=== PATIENT | male | born 1980 | race Caucasian/White ===

== ENCOUNTER 2019-04-13 18:09 | Observation (INO) | payer BC ==
--- OUTSIDE RECORDS SUMMARY | 2019-04-13 18:42 | XMS REPORT | Continuity of Care Document ---
:1980 External Reference #:[id number] Author Name Honorio Taveras NP (transmitted by agent of provider Trish Sorensen) Address [address], [place] [address] Care Team Providers Name Role Phone Misha Jack III, MD - Internal Care Team Information Associate Software Developer [phone] Medicine Problems Active Problems Provider Date Type 2 diabetes mellitus Misha Jack M.D. Onset: 08/22/2013 Essential hypertension Misha Jack M.D. Onset: 08/22/2013 Social History Type Date Description Comments Sex Unknown ETOH Use Denies alcohol use Tobacco Use Start: Unknown End: Patient is a former quit 3-4 months Unknown smoker ago. Recreational Drug Use Never Used Drugs Smoking Status Reviewed: 02/19/19 Patient is a former quit 3-4 months smoker ago. Exercise Type/Frequency Exercises rarely Allergies, Adverse Reactions, Alerts Active Allergies Reaction Severity Comments Date Ibuprofen Rash Moderate 08/22/2013 Penicillins unsure (child) Moderate 08/22/2013 Medications Active Medications SIG Qnty Indications Ordering Date Provider Glipizide XL 1 by mouth every 30tabs Honorio Taveras NP 02/19/2019 5mg day (in addition Tablets ER 24HR to 10mg tab) Trulicity Inject One Pen 2units E11.9 Honorio Taveras NP 08/17/2018 1.5mg/0.5ML Under The Skin Solution Pen-Inject Once Weekly Metformin HCL Take One Tablet 60tabs Honorio Taveras NP 01/28/2018 1000mg By Mouth Twice A Tablets Day as Directed Gemfibrozil Take One Tablet 60tabs Honorio Taveras NP 01/18/2018 600mg By Mouth Twice A Tablets Day Omeprazole Take One Capsule 30caps Honorio Taveras NP 01/18/2018 20mg By Mouth Once Capsules DR Daily Blood Glucose check blood sugar 1units E11.9 Honorio Taveras NP 01/18/2018 Monitoring System 2-3 times daily W/Device Kit Blood Glucose Test check blood 270units E11.9 Honorio Taveras NP 01/18/2018 glucose 2-3 times Strips daily Lancets use two to three 270units E11.9 Honorio Taveras NP 01/18/2018 Misc times daily and as needed Lisinopril Take One Tablet 30tabs Honorio Taveras NP 10mg By Mouth Once Tablets Daily Immunizations CPT Code Status Date Vaccine Reaction Lot # [id number] Given 02/19/2019 Influenza Virus Vaccine, No immediate reaction [id number] Quadrivalent ([id number]), Derived From Cell [id number] Given 05/17/2018 Pneumonia Vaccine No immediate [id number] reaction..[id number] Given 01/18/2018 Influenza Virus Vaccine, [id number] Quadrivalent, Split, Preservative Free Vital Signs Date Vital Result Comment 02/19/2019 9:15am Height 70.5 inches 5'10.50" Weight 324.00 lb Heart Rate 100 /min BP Systolic 135 mmHg BP Diastolic 81 mmHg Body Temperature 97.8 F O2 % BldC Oximetry 96 % BMI (Body Mass Index) 45.8 kg/m2 12/27/2018 8:27am Height 70.5 inches 5'10.50" Weight 324.38 lb Heart Rate 108 /min BP Systolic 133 mmHg BP Diastolic 80 mmHg Body Temperature 97.8 F O2 % BldC Oximetry 97 % BMI (Body Mass Index) 45.9 kg/m2 Results Test Acquired Date Facility Test Result H/L Range Note Laboratory test 02/19/2019 [employer] [facility] Hemoglobin A1c 8.1% High 5-7 finding Laboratory test 01/24/2019 [employer] [facility] [facility] [facility] Hemoglobin A1c <pending> 5-7 finding Laboratory test 11/19/2018 [employer] [facility] Hemoglobin A1c 8.1% High 5-7 finding Procedures Date Code Description Status 06/20/2018 161852606 Diabetic Retinal Eye Exam Completed Medical Devices Description No Information Available Encounters Type Date Location Provider Dx Diagnosis Office Visit 12/27/2018 [facility] Honorio Taveras NP E66.9 Obesity, unspecified 8:40a Medicine - [facility] Z68.42 Body mass index (BMI) 45.0-49.9, adult E11.65 Type 2 diabetes mellitus with hyperglycemia I10 Essential (primary) hypertension G47.33 Obstructive sleep apnea (adult) (pediatric) K21.9 Gastro-esophageal reflux disease without esophagitis Office Visit 11/19/2018 9:00a [facility] Internal Honorio Taveras, 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 E11.65 Type 2 diabetes mellitus with hyperglycemia I10 Essential (primary) hypertension Assessments Date Code Description Provider 02/19/2019 E11.65 Type 2 diabetes mellitus with hyperglycemia Honorio Taveras NP 02/19/2019 I10 Essential (primary) hypertension Honorio Taveras NP 02/19/2019 Z23 Encounter for immunization Honorio Taveras NP 02/19/2019 K21.9 Gastro-esophageal reflux disease without esophagitis Honorio Taveras NP 01/24/2019 E11.65 Type 2 diabetes mellitus with hyperglycemia Honorio Taveras NP 12/27/2018 E66.9 Obesity, unspecified Honorio Taveras NP 12/27/2018 Z68.42 Body mass index (BMI) 45.0-49.9, adult Honorio Taveras NP 12/27/2018 E11.65 Type 2 diabetes mellitus with hyperglycemia Honorio Taveras NP 12/27/2018 I10 Essential (primary) hypertension Honorio Taveras NP 12/27/2018 G47.33 Obstructive sleep apnea (adult) (pediatric) Honorio Taveras NP 12/27/2018 K21.9 Gastro-esophageal reflux disease without esophagitis Honorio Taveras NP 11/19/2018 Z79.84 alf (current) use of oral hypoglycemic drugs Honorio Taveras NP 11/19/2018 E11.65 Type 2 diabetes mellitus with hyperglycemia Honorio Taveras NP 11/19/2018 I10 Essential (primary) hypertension Honorio Taveras NP Plan of Treatment Future Appointment(s):05/20/2019 10:20 am - [facility] Honorio Taveras NPE11.65 Type 2 diabetes mellitus with hyperglycemiaComments:Your A1c remains 8.1% which is too high.It is important to try to exercise 5 days a week and to decrease carbohydrate consumption.Increase the Glipizide to 15mg daily.Follow up:3 months, 20 minRecommendations:See your car cleaning supervisor every year. It is OK to go every 2 years if he finds no retinal damage from diabetes. Ask your car cleaning supervisor to communicate his findings to us. See a assorter every 6 months if you have numbness in your feet or a history of foot ulcers.I10 Essential (primary) hypertensionComments:HYPERTENSION:Well controlled on current regimen. Continue present management.Z23 Encounter for sjfwxmlpxgixU90.9 Gastro-esophageal reflux disease without esophagitis Goals 02/19/2019 - Honorio Taveras, NPE11.65 Type 2 diabetes mellitus with hyperglycemiaGoal Hemoglobin A1c is less than 7.0%. Goal Blood pressure is less than 130/85. Functional Status Description No Information Available Mental Status Description No Information Available Referrals Refer to Dr Reason for Referral Status Appt Date [facility] Closed [address] [place] [address] [phone]
--- NOTE | 2019-04-13 18:46 | ED ---
Palpitations / Dysrhythmia - HPI Summary HPI Summary: This patient is a 38 y/o male [facility]. Patient reports he first had severe chills today and started shivering. He notes he then felt palpitations, characterized as fast heart beat, and saw on apple watch his heart rate was elevated. Patient states he became dizzy and began to have SOB this afternoon. Patient reports subjective fever. He notes he has some burning with urination and a little bit of diarrhea that began this morning, and denies eating anything unusual today. Denies cough, runny nose, sore throat, vomiting, abd pain, chest pain. PMHx: kidney stone in 2013. Patient is a former smoker, he quit 5-6 years ago and has been vaping since then. He states he vapes the lowest amount of nicotine he can get. He admits to occasional alcohol use. Denies drug use. Home Medications Medication Instructions Recorded Confirmed Type NK [No Home Medications Reported] 05/01/13 05/01/13 History - History of Current Complaint Chief Complaint: EDDysrhythmPalp Time Seen by Provider: 04/13/19 18:36 Hx Obtained From: Patient Onset/Duration: Lasting Hours, Still Present Timing: Constant Severity Currently: Moderate Character: Fast Aggravating: Nothing Alleviating: Nothing Associated Signs & Symptoms: Dizzy, Shortness of Breath - Allergy/Home Medications Allergies/Adverse Reactions: Allergies Allergy/AdvReac Type Severity Reaction Status Date / Time ibuprofen Allergy Rash Verified 04/13/19 18:14 Penicillins Allergy Unknown Verified 04/13/19 18:14 Reaction Details Home Medications: Home Medications Dulaglutide (NF) [Trulicity (NF)] 1.5 mg IM WEEKLY 04/14/19 [History Confirmed 04/14/19] Metformin HCl 1,000 mg PO BID 04/14/19 [History Confirmed 04/14/19] Omeprazole 20 mg PO DAILY 04/14/19 [History Confirmed 04/14/19] gemfibroziL [Gemfibrozil] 600 mg PO BID 04/14/19 [History Confirmed 04/14/19] glipiZIDE [Glipizide ER] 15 mg PO DAILY 04/14/19 [History Confirmed 04/14/19] lisinopriL [Lisinopril] 10 mg PO DAILY 04/14/19 [History Confirmed 04/14/19] PMH/Surg Hx/FS Hx/Imm Hx Endocrine/Hematology History: Reports: Hx Diabetes - Borderline Denies: Hx Thyroid Disease Cardiovascular History: Reports: Hx Hypertension Respiratory History: Reports: Hx Sleep Apnea - not sure Denies: Hx Asthma, Hx Chronic Obstructive Pulmonary Disease (COPD) GI History: Denies: Hx Ulcer History: Reports: Hx Kidney Stones Musculoskeletal History: Reports: Hx Back Problems, Hx Gout Sensory History: Reports: Hx Contacts or Glasses Opthamlomology History: Reports: Hx Contacts or Glasses Neurological History: Reports: Hx Migraine - Surgical History Surgical History: Yes Surgery Procedure, Year, and Place: TONSILS Infectious Disease History: No Infectious Disease History: Denies: Hx Hepatitis, Hx Human Immunodeficiency Virus (HIV), Traveled Outside the [place] in Last 30 Days - Family History Known Family History: Positive: Cardiac Disease - Father with [place] Family History: Father with bladder [place]. - Social History Alcohol Use: Occasionally Substance Use Type: Reports: None Smoking Status (MU): Former Smoker Type: eCigarettes Amount Used/How Often: quit ~2014 and since then has been vaping Review of Systems Positive: Fever - subjective, Chills Negative: Sore Throat, Nasal Discharge Positive: Palpitations. Negative: Chest Pain Positive: Shortness Of Breath. Negative: Cough Positive: Diarrhea. Negative: Abdominal Pain, Vomiting Positive: dysuria Neurological/Mental Status: Other - POSITIVE: dizziness All Other Systems Reviewed And Are Negative: Yes Physical Exam - Summary Physical Exam Summary: VITAL SIGNS: Reviewed. GENERAL: Patient is a well-developed and obese male who is lying comfortable in the stretcher in no acute distress. HEAD AND FACE: No signs of trauma. No ecchymosis, hematomas or skull depressions. No sinus tenderness. EYES: PERRLA, EOMI x 2, No injected conjunctiva, no nystagmus. EARS: Hearing grossly intact. Ear canals and tympanic membranes are within normal limits. MOUTH: Oropharynx within normal limits. NECK: Supple, trachea is midline, no adenopathy, no JVD, no carotid bruit, no c- spine tenderness, neck with full ROM. CHEST: Symmetric, no tenderness at palpation LUNGS: Clear to auscultation bilaterally. No wheezing or crackles. CVS: Tachycardic rate and rhythm, S1 and S2 present, no murmurs or gallops appreciated. ABDOMEN: Soft, non-tender. No signs of distention. No rebound no guarding, and no masses palpated. Bowel sounds are normal. EXTREMITIES: FROM in all major joints, no edema, no cyanosis or clubbing. NEURO: Alert and oriented x 3. No acute neurological deficits. Speech is normal and follows commands. SKIN: Dry and warm Triage Information Reviewed: Yes Vital Signs On Initial Exam: Initial Vitals Temp Pulse Resp BP Pulse Ox 97.9 F 149 16 139/90 96 04/13/19 18:11 04/13/19 18:11 04/13/19 18:11 04/13/19 18:11 04/13/19 18:11 Vital Signs Reviewed: Yes Procedures - Sedation Patient Received Moderate/Deep Sedation with Procedure: No Diagnostics - Vital Signs Vital Signs Temp Pulse Resp BP Pulse Ox 04/13/19 18:11 97.9 F 149 16 139/90 96 - Laboratory Result Diagrams: 04/14/19 06:35 04/14/19 06:34 Lab Statement: Any lab studies that have been ordered have been reviewed, and results considered in the medical decision making process. - Radiology chest XR Radiology Interpretation Completed By: ED Physician Summary of Radiographic Findings: Negative chest x-ray. - CT CTA Chest CT Interpretation Completed By: Radiologist Summary of CT Findings: IMPRESSION: 1. No evidence of acute pulmonary embolus. 2. No significant airspace consolidation. 3. Fatty liver. Dr. Urbina has reviewed this report. - EKG 18:19 Cardiac Rate: Tachycardia - at 141 bpm EKG Rhythm: Sinus Tachycardia Summary of EKG Findings: EKG at 1819 shows sinus tachycardia at a rate of [address] elevations. This EKG was interpreted and reviewed by ED physicians. Course/Dx - Course Assessment/Plan: This patient is a 38 y/o male presenting [facility] c/o palpitations today. Patient reports he first had severe chills today and started shivering. He notes he then felt palpitations, characterized as fast heart beat, and saw on apple watch his heart rate was elevated. Patient states he became dizzy and began to have SOB this afternoon. Patient reports subjective fever. He notes he has some burning with urination and a little bit of diarrhea that began this morning, and denies eating anything unusual today. Denies cough, runny nose, sore throat, vomiting, chest pain. PMHx: kidney stone in 2014. Patient is a former smoker, he quit 5-6 years ago and has been vaping since then. He states he vapes the lowest amount of nicotine he can get. He admits to occasional alcohol use. Denies drug use. Blood work without a significant abnormality except for white blood cell count of 13.2, absolute neutrophils of 12, D-dimer is 436, chloride 99, carbon dioxide is 21, anion gap is 13, glucose is 205, lactic acid is 2.8, magnesium is 1.3 and the CRP is 36.45. Urinalysis is negative for UTI. Influenza A and B is negative. Chest x -ray shows no acute cardiothoracic pathology. Initially the patient was given magnesium for the hypomagnesemia, IV fluids. The patient reports increasing shortness of breath and tachycardia, therefore I decided to perform a CTA to rule out PE. CTA result: No PE. The patient became febrile and slightly hypotensive therefore the patient was started on the sepsis protocol. The patient was given fluids 30 ccs per KG of the spectrum antibiotic. The patient is allergic to penicillin therefore he was given Levaquin. Patient seems to be getting septic and the source is not known at this point. Patient doesnt have any recent history of clotting. He hasnt been in contact with sick contacts. The only complain is that this morning he developed some slight diarrhea but not in the afternoon. He denies any abdominal pain. At this point I discussed my physical exam and findings with Dr. Aviles from the hospitalist services who will be admitting the patient to her services for further workup and management. CTA chest IMPRESSION: 1. No evidence of acute pulmonary embolus. 2. No significant airspace consolidation. 3. Fatty liver. Dr. Urbina has reviewed this report. - Diagnoses Provider Diagnoses: Sepsis, Tachycardia - Physician Notifications Discussed Care Of Patient With: Opal Aviles - hospitalist Time Discussed With Above Provider: 20:57 Instructed by Provider To: Admit As Inpatient - Critical Care Time Critical Care Time: 30-74 min - 45 minutes Discharge ED - Sign-Out/Discharge Documenting (check all that apply): Patient Departure - Admit to [facility] - Discharge Plan Condition: Stable Disposition: ADMITTED TO [facility] - Billing Disposition and Condition Condition: STABLE Disposition: Admitted to [facility] - Attestation Statements Document Initiated by Avisibkevin: Yes Documenting Scribe: Gwen Amato Provider For Whom Scribkevin is Documenting (Include Credential): Misha Urbina MD Scribe Attestation: I, Gwen Amato, scribed for Misha Urbina MD on 04/14/19 at 1058. Scribe Documentation Reviewed: Yes Provider Attestation: The documentation as recorded by the Gwen candelaria accurately reflects the service I personally performed and the decisions made by me, Misha Urbina MD Status of Scribe Document: Viewed
[2019-04-13 18:58] LABS: ABS Lymphocytes 0.5 10^3/ul (1.0-4.8); ABS Monocytes 0.7 10^3/ul (0-0.8); Eosinophil % 0.1 %; Hematocrit 45 % (42-52); Hemoglobin 15.6 g/dL (14.0-18.0); Lymphocyte % 3.6 %; Mean Corpuscular HGB Conc 35 g/dL (31-36); Mean Corpuscular Hemoglobin 28 pg (27-31); Mean Corpuscular Volume 80 fL (80-94); Mean Platelet Volume 8.2 fL (7.4-10.4); Platelet Count 227 10^3/uL (150-450); Red Blood Count 5.62 10^6 /uL (4.18-5.48); Red Cell Distribution Width 13 % (10-15); White Blood Count 13.2 10^3/uL (3.5-10.8)
[2019-04-13] MEDS: NS 0.9% 1000 ML** 1,000 ML IV ONE ×2 (19:01→22:02)
[2019-04-13 19:13] LABS: Activated Partial Thrombo Time 39.6 seconds (26.0-38.0)
[2019-04-13 19:16] LABS: Albumin 4.7 g/dL (3.2-5.2); Albumin/Globulin Ratio 1.6 (1-3); BUN/Creatinine Ratio 19.2 (8-20); C Reactive Protein 36.45 mg/L (<8.01); Calcium 9.8 mg/dL (8.6-10.3); EGFR African American 135.5 (>60); Magnesium 1.3 mg/dL (1.9-2.7); Potassium 3.9 mmol/L (3.5-5.0); Total Bilirubin 0.7 mg/dL (0.2-1.0); Total Protein 7.7 g/dL (6.4-8.9)
[2019-04-13] MEDS ORDERED: Magnesium Sulfate 1 GM IV* 1 GM/100 ML BAG IV ONE (19:22)
[2019-04-13 19:29] LABS: Influenza A Molecular Negative (Negative); Influenza B Molecular Negative (Negative)
[2019-04-13 19:48] LABS: TSH (Thyroid Stimulating Horm) 0.65 mcIU/mL (0.34-5.60)
[2019-04-13 20:05] LABS: Erythrocyte Sed Rate 9 mm/Hr (0-14)
[2019-04-13 20:14] LABS: Urine Appearance Cloudy; Urine Bilirubin Negative (Negative); Urine Blood Negative (Negative); Urine Color Yellow; Urine Glucose Negative (Negative); Urine Ketones 1+ (Negative); Urine Nitrite Negative (Negative); Urine Protein Negative (Negative); Urine Specific Gravity 1.028 (1.010-1.030); Urine Urobilinogen Negative (Negative)
[2019-04-13] MEDS ORDERED: Iodixanol* (CONTRAST) 320 MG/ML 100 ML SDV IV ONE (20:21)
[2019-04-13] MEDS ORDERED: NS 0.9% 1000 ML** 1,000 ML IV.FLUID IV ONE (20:37)
[2019-04-13] MEDS ORDERED: cefTRIAXone(*) 1 GM in NS 0.9% 50 ML* 50 ML IVPB ONE (20:37)
[2019-04-13] MEDS ORDERED: Acetaminophen TAB* 325 MG PO ONE (20:38)
[2019-04-13] MEDS ORDERED: Levofloxacin 750 MG IVPREMIX(* 750 MG/150 ML BAG IVPB ONE (20:39)
[2019-04-13] MEDS ORDERED: NS 0.9% 1000 ML** 1,000 ML IV SCH (22:30)
--- NOTE | 2019-04-13 23:37 | ADMNOTE ---
Subjective Interval History: 38 yo male with history of diabetes and HTN who presented to the ED today with complaints of palpitations and dizziness. He also has been experiencing subjective fevers and chills earlier today. When he became short of breath, he came to the ED. In the ED, he was tachycardic in the 140s-150s with hypotension. He has mild leukocytosis, mild lactic acidosis. D-dimer was elevated, he got a CTA which showed no PEs, no PNA reported either. UA is normal. Patient is a former smoker. He admits to occasional alcohol use. Denies drug use. ROS: loose stool but no abdominal pain, calf pain. Family History: Unchanged from Admission Social History: Unchanged from Admission Past Medical History: Unchanged from Admission Review of Systems - Measurements Intake and Output: Intake and Output Last 24 Hours 04/11/19 04/12/19 04/13/19 04/14/19 06:59 06:59 06:59 06:59 Intake Total 1999 Balance 1999 Weight 327 lb Intake: IV Fluids 1999 - Review of Systems Constitutional Symptoms: Positive: Fatigue, Fever Negative: Weight Gain, Weight Loss, Weakness, Night Sweats, Unexplained Falls , Other Dermatology: Negative: Normal, Rash, Skin Lesions, Cancer, Skin Lumps, Other HEENT: Negative: Normal, Change in Hearing, Vertigo, Dental Problems, Tinnitus, Sinus Problem, Other Eyes: Negative: Normal, Change in Vision, Double Vision, Eye Pain, Glaucoma, Cataract, Contacts or Glasses, Other Pulmonary: Positive: Shortness of Breath Negative: Normal, Cough, Sputum, Hemoptysis, Wheezing, Respiratory Distress, COPD, Asthma, Exercise Intolerance, Home Oxygen, Other Cardiology: Positive: Shortness of Breath, Palpitations, Orthopnoea Negative: Normal, Chest Pain, Swelling of Ankles, Peripheral Vascular Dis, Edema, Faintness, Syncope, Claudication, Proximal NocturnalDyspnea, Other Gastroenterology: Positive: Diarrhea Negative: Normal, Abdominal Pain, Nausea, Vomiting, Anorexia, Indigestion, Difficulty Swallowing, Heartburn, Constipation, Blood in Stools, Change in Bowel Habits, Haematemesis, Melena, Other Musculoskeletal: Negative: Joint Pain, Joint Stiffness, Arthritis, Osteoporosis, Low Back Pain , Sciatica, Joint Deformities, Kyphoscoliosis, Other Endocrinology: Negative: Normal, Thyroid Problems, Adrenal Problems, Gonadal Problems, Family Hx Endocrine Disorders, Obesity, Diabetes Mellitus, Hyperglycemia, Hx Hypoglycemia, Diabetic Foot Ulcers, Calluses, Hirsutism, Menstrual Abnormalities , Polydipsia, Polyuria, Gonadal Problems, Gynecomastia, Pituitary disease, Other Hematologic/Lymphatic: Negative: Anemia, Easy Bruising, Hx Leukemia, Hx Lymphoma, Use of Anticoagulant, Use of Antiplatelet Drugs, Other Neurology: Negative: Normal, Headache, Migraines, Change in Vision, Diplopia, Dizziness , Change in Balancing, Change in Coordination, Change in Memory, Change in Speech, Change in Sphincter Function, Change in Walking, Numbness\Paresthesiae, Unexplained Weakness, Hx of Stroke\TIA, Hx of Seizures, Other Psychiatry: Negative: Normal, Depression, Anxiety, Depressed Mood, Anhedonia, Sexual Dysfunction, Weight Change, Guilt Feelings, Tearfulness, Unusual Fatigue, Unusual Anxiety, Suicidal Ideation, Hypomania, Eating Disorders, Other Objective Active Medications: Sodium Chloride (Ns 0.9% 1000 Ml) 1,000 mls @ 125 mls/hr IV PER RATE [facility] Ceftriaxone Sodium 1 gm/ (Sodium Chloride) 50 mls @ 100 mls/hr IVPB Q24H [facility] Vital Signs - 8 hr 04/13/19 04/13/19 04/13/19 18:11 18:29 18:31 Temperature 97.9 F Pulse Rate 149 135 141 Respiratory 16 11 17 Rate Blood Pressure 139/90 129/97 (mmHg) O2 Sat by Pulse 96 96 96 Oximetry 04/13/19 04/13/19 04/13/19 19:00 20:34 22:07 Temperature 100.9 F 98.8 F Pulse Rate 134 132 129 Respiratory 13 22 17 Rate Blood Pressure 88/61 108/66 (mmHg) O2 Sat by Pulse 97 96 Oximetry Oxygen Devices in Use Now: None Appearance: NID Eyes: No Scleral Icterus, PERRLA Ears/Nose/Mouth/Throat: NL Teeth, Lips, Gums, Mucous Membranes Moist Neck: NL Appearance and Movements; NL JVP, Trachea Midline Respiratory: Symmetrical Chest Expansion and Respiratory Effort, Clear to Auscultation, Clear to Percussion Cardiovascular: - - tachycarida no murmurs Abdominal: NL Sounds; No Tenderness; No Distention Lymphatic: No Cervical Adenopathy Extremities: No Edema, No Clubbing, Cyanosis Skin: No Rash or Ulcers, No Nodules or Sclerosis Neurological: Alert and Oriented x 3, NL Muscle Strength and Tone Result Diagrams: 04/13/19 18:48 04/13/19 18:48 Assess/Plan/Problems-Billing Assessment: - Patient Problems (1) Sinus tachycardia Current Visit: Yes Status: Acute Code(s): R00.0 - TACHYCARDIA, UNSPECIFIED SNOMED Code(s): 14294383 Comment: presented with palpitation and hypotension. His HR initially was 140s-150s and he was hypotensive, his pressure responded to boluses of fluids. He still remains tachycardic in the 120s. EKG shows sinus tachycardia. Suspicous of an infectious source, but so far CT of lungs and ua are normal. Blood cx drawn He complained to calf pain, will get US of legs B/L will cover him empiracally with ceftriaxone until we know more (2) Hypertension Current Visit: Yes Status: Acute Code(s): I10 - ESSENTIAL (PRIMARY) HYPERTENSION SNOMED Code(s): 71574366 Comment: hold home meds (3) Diabetes mellitus Current Visit: Yes Status: Acute Code(s): E11.9 - TYPE 2 DIABETES MELLITUS WITHOUT COMPLICATIONS SNOMED Code(s): 11033617 Comment: diabetic diet meal coverage FS POC ACHS (4) DVT prophylaxis Current Visit: Yes Status: Acute Code(s): Z29.9 - ENCOUNTER FOR PROPHYLACTIC MEASURES, UNSPECIFIED SNOMED Code(s): 503752953 Comment: heparin (5) Full code status Current Visit: Yes Status: Acute Code(s): Z78.9 - OTHER SPECIFIED HEALTH STATUS SNOMED Code(s): 187824304
[2019-04-13] MEDS ORDERED: Dextrose 50% Syringe 50 ML* 25 GM/50 ML SYRINGE IV PUSH PRN (23:47)
[2019-04-14] MEDS ORDERED: cefTRIAXone(*) 1 GM in NS 0.9% 50 ML* 50 ML IVPB SCH ×2
[2019-04-14] MEDS: Insulin LISPRO* 1 UNITS UNIT SUBCUT SCH ×3 (01:09→12:22)
[2019-04-14 07:22] LABS: ABS Lymphocytes 0.8 10^3/ul (1.0-4.8); ABS Neutrophils 7.4 10^3/ul (1.5-7.7); Eosinophil % 0.1 %; Hematocrit 40 % (42-52); Hemoglobin 13.6 g/dL (14.0-18.0); Mean Corpuscular HGB Conc 34 g/dL (31-36); Mean Corpuscular Hemoglobin 27 pg (27-31); Mean Corpuscular Volume 80 fL (80-94); Mean Platelet Volume 8.1 fL (7.4-10.4); Platelet Count 208 10^3/uL (150-450); Red Blood Count 4.97 10^6 /uL (4.18-5.48); Red Cell Distribution Width 14 % (10-15); White Blood Count 9.3 10^3/uL (3.5-10.8)
[2019-04-14 07:38] LABS: Calcium 8.1 mg/dL (8.6-10.3); EGFR African American 194.6 (>60); EGFR Non-African American 160.8 (>60); Potassium 3.4 mmol/L (3.5-5.0)
[2019-04-14] MEDS ORDERED: Heparin VIAL(*) 5000 UNITS/ML VIAL (FIVE THOUSAND) SUBCUT SCH (09:00)
--- NOTE | 2019-04-14 09:58 | PN ---
Subjective Date of Service: 04/14/19 Interval History: Pt is feeling well. He states he is essentially back to normal. He has continued to have some loose stools overnight and this AM. Yesterday he had mild SOB and that has resolved. No cough or sputum production. No dysuria. Objective Active Medications: Dextrose (D50w Syringe 50 Ml*) 12.5 gm IV PUSH .FOR FS < 60 - SS PRN PRN Reason: FS < 60 Gemfibrozil (Lopid Tab*) 600 mg PO BID [facility] Heparin Sodium (Porcine) (Heparin Vial(*)) 5,000 units SUBCUT Q12HR [facility] Last Admin: 04/14/19 08:58 Dose: 5,000 units Sodium Chloride (Ns 0.9% 1000 Ml) 1,000 mls @ 125 mls/hr IV PER RATE [facility] Last Admin: 04/14/19 08:58 Dose: 125 mls/hr Ceftriaxone Sodium 1 gm/ (Sodium Chloride) 50 mls @ 100 mls/hr IVPB 2100 [facility] Last Admin: 04/14/19 01:04 Dose: 100 mls/hr Insulin Human Lispro (Humalog*) 0 units SUBCUT ACHS [facility]; Protocol Last Admin: 04/14/19 08:57 Dose: 3 units Omeprazole (Prilosec Cap* (Nf)) 20 mg PO DAILY [facility] Vital Signs - 8 hr 04/14/19 04/14/19 04/14/19 03:26 07:15 07:45 Temperature 97.7 F 97 F Pulse Rate 110 107 Respiratory 16 16 16 Rate Blood Pressure 116/71 126/74 (mmHg) O2 Sat by Pulse 99 97 Oximetry Oxygen Devices in Use Now: None Appearance: Young male standing in the room, NAD Eyes: No Scleral Icterus Ears/Nose/Mouth/Throat: Mucous Membranes Moist Respiratory: Symmetrical Chest Expansion and Respiratory Effort, Clear to Auscultation Cardiovascular: NL Sounds; No Murmurs; No JVD, - - mildly tachycardic, regular Abdominal: NL Sounds; No Tenderness; No Distention Extremities: No Clubbing, Cyanosis Skin: No Nodules or Sclerosis Neurological: Alert and Oriented x 3 Result Diagrams: 04/14/19 06:35 04/14/19 06:34 Assess/Plan/Problems-Billing Mr Parks is a 38 yo M who has a h/o type II DM and obesity who presented to the ER with c/o palpitations and fever and was admitted for sepsis secondary to unclear etiology. - Patient Problems (1) Sepsis Current Visit: Yes Status: Acute Comment: Pt was in severe sepsis on admission. While he had significant hypotension, after the 30ml/kg bolus his BP returned to normal. It is unclear what the patient was septic from. I suspect a viral illness given his evaluation so far has been negative for clear source of infection. Will send off stool studies as loose stools has been the only positive finding. Stop Abx as no clear bacterial infection has been indentified. I do not think he needs an echo so will stop this. Will check LE dopplers given elevated d-dimer. (2) Sinus tachycardia Current Visit: Yes Status: Acute Code(s): R00.0 - TACHYCARDIA, UNSPECIFIED SNOMED Code(s): 75870152 Comment: Resolved with IVF hydration. Likely tachycardic from sepsis and dehydration. (3) Diabetes mellitus Current Visit: Yes Status: Acute Code(s): E11.9 - TYPE 2 DIABETES MELLITUS WITHOUT COMPLICATIONS SNOMED Code(s): 86549194 Comment: Will continue lispro sliding scale. Will add back metformin. He will resume his home meds on d/c. (4) VERA (obstructive sleep apnea) Current Visit: Yes Status: Acute Code(s): G47.33 - OBSTRUCTIVE SLEEP APNEA ( ADULT) (PEDIATRIC) SNOMED Code(s): 42885087 Comment: CPAP. (5) Hypertension Current Visit: Yes Status: Acute Code(s): I10 - ESSENTIAL (PRIMARY) HYPERTENSION SNOMED Code(s): 19920149 Comment: BP has now normalized. Hold lisinopril for now given recent hypotension. (6) DVT prophylaxis Current Visit: Yes Status: Acute Code(s): Z29.9 - ENCOUNTER FOR PROPHYLACTIC MEASURES, UNSPECIFIED SNOMED Code(s): 587609367 Comment: heparin (7) Full code status Current Visit: Yes Status: Acute Code(s): Z78.9 - OTHER SPECIFIED HEALTH STATUS SNOMED Code(s): 328313316 Status and Disposition: likely home this afternoon if HR remains controlled and pt feels well.
[2019-04-14] MEDS ORDERED: Pantoprazole TAB * 40 MG TAB PO SCH (10:00)
[2019-04-14] MEDS ORDERED: metFORMIN* 1,000 MG TAB PO SCH ×2 (11:00→21:00)
[2019-04-14 15:57] VITALS: BP 132/81
--- NOTE | 2019-04-14 20:38 | DS ---
CC: Honorio Taveras NP * DISCHARGE SUMMARY: DATE OF ADMISSION: 04/13/19 DATE OF DISCHARGE: 04/14/19 PRIMARY CARE PROVIDER: Honorio Taveras NP. PRINCIPAL DIAGNOSIS: Sepsis, secondary to probable viral illness. SECONDARY DIAGNOSES: 1. Type 2 diabetes. 2. Hypertension. DISCHARGE MEDICATIONS: 1. Metformin 1000 mg p.o. b.i.d. to start a.m. 04/16/19. 2. Glipizide ER 15 mg p.o. daily. 3. Gemfibrozil 600 mg p.o. b.i.d. 4. Lisinopril 10 mg p.o. daily to start a.m. 04/16/19. 5. Omeprazole 20 mg p.o. daily. 6. Trulicity 1.5 mg IM weekly. HOSPITAL COURSE: Mr. Parks is a 38-year-old male who presented to the emergency room on 04/13/19 with complaints of palpitations and fever. He was found to be likely in severe sepsis as he was severely hypotensive though responded appropriately to fluid bolus. He was tachycardiac to the 150s. He also had a fever of 101 in the emergency room. Urinalysis and chest x-ray did not reveal any clear source of infection. The patient underwent CTA of the chest which did not reveal evidence of PE. Again, no pulmonary processes were identified. The patient did have a mildly elevated D-dimer. I did not feel the need to keep the patient in the hospital for evaluation with lower extremity Doppler. The patient did admit to some loose stools. However, this has since resolved. The patient's blood pressure has normalized and his heart rate as well has normalized. He states that he feels extremely well. At this point, the patient feels that he is ready for discharge home. I have discussed with the patient that we did not find a clear source of infection and because of this I am not sending him home on antibiotic therapy. He has been instructed to monitor his symptoms and how he is feeling and if anything feels off or if he has any concerns, he is to return to the emergency room for evaluation. As the diarrhea resolved, I do not feel that stool studies are necessary at this point any longer. I do not feel a transthoracic echocardiogram is necessary. Blood cultures are pending and if these return positive, I will contact the patient with instructions on what to do. FOLLOWUP CONCERNS: The patient is being discharged home today, 04/14/19. ACTIVITY LEVEL: As tolerated. DIET: Diabetic. CONDITION ON DISCHARGE: Stable. TIME SPENT: Twenty five minutes was spent discharging this patient. [id number]/CPS #: [id number] MTDD
[2019-04-14] MEDS ORDERED: Gemfibrozil TAB* 600 MG PO SCH (21:00)
== END 2019-04-14 16:24 | disposition home or self-care (01) ==
LOC: ED 18:09 → INTOOBSV 22:21 → MEDTELE 22:21
PROVIDERS: ADMIT Student in an Organized Health Care Education/Training Program; ATTEND Hospitalist
DX: A41.9 Sepsis, unspecified organism (principal); E11.9 Type 2 diabetes mellitus without complications; I10 Essential (primary) hypertension; R00.0 Tachycardia, unspecified; R06.02 Shortness of breath; G47.33 Obstructive sleep apnea (adult) (pediatric); R42 Dizziness and giddiness; R53.83 Other fatigue; Z79.4 Long term (current) use of insulin; Z79.899 Other long term (current) drug therapy; Z79.84 Long term (current) use of oral hypoglycemic drugs; Z87.442 Personal history of urinary calculi; Z87.891 Personal history of nicotine dependence
CPT/HCPCS: 36415; 71045; 71275; 80048; 80053; 81003; 82550; 83605; 83735; 84443; 84484; 85025; 85379; 85652; 85730; 86140; 87040; 93005; 96361; 96365; 96367; 96372; 99285; A9270-GY; G0378; J0696; J1644; J3475; Q9967

== ENCOUNTER 2019-12-23 05:59 | Inpatient (IN) ==
[2019-12-23] MEDS ORDERED: Buffered Lidocaine 1% SYRIN 1 ml INTRADERM ONE (06:00)
[2019-12-23] MEDS ORDERED: Lactated Ringers 1000 ml BAG 1,000 ML IV SCH (06:00)
[2019-12-23] MEDS ORDERED: Sodium Citrate/Citric Acid LIQ 15 ML UDC PO ONE (06:00)
[2019-12-23] MEDS ORDERED: Heparin 5000 UNITS/ML 1 mL VIAL ONE (06:20)
[2019-12-23] MEDS ORDERED: Sodium Citrate/Citric Acid LIQ 15 ML UDC ONE (06:21)
[2019-12-23] MEDS ORDERED: Clindamycin 900 MG/D5W BAG 900 MG/50 ML BAG IVPB ONE (06:21)
[2019-12-23] MEDS ORDERED: Bupivacaine 0.25% SDV 30 ML ONE (06:57)
[2019-12-23] MEDS ORDERED: Methylene Blue 0.5 % 50 MG/10 ML AMP IV ONE (06:57)
[2019-12-23] MEDS ORDERED: fentaNYL 250 mcg/5 ml 50 MCG/ML 5 ml VIAL (250 MCG) ONE ×2 (07:02→08:06)
[2019-12-23] MEDS ORDERED: Midazolam 5 mg/5 ml VIAL 1 mg/ml 5 ml VIAL (5 mg) ONE (07:02)
[2019-12-23] MEDS ORDERED: Rocuronium 50 mg VIAL 10 mg/ml 5 ml VIAL (50 mg) ONE ×2 (07:02→08:18)
[2019-12-23] MEDS ORDERED: Propofol 10 MG/ML 20 ML BTL ONE ×3 (07:02→14:42)
[2019-12-23] MEDS ORDERED: Ketamine HCL 50 mg/ml 10 ml VIAL (500 MG) ONE (07:02)
[2019-12-23] MEDS ORDERED: Lidocaine 2% PF 5 ML VIAL ONE ×3 (07:03→09:10)
[2019-12-23 07:31] LABS: Activated Partial Thrombo Time 36.9 seconds (26.0-38.0); INR 1.12 (0.82-1.09)
[2019-12-23] MEDS ORDERED: Ondansetron 4 mg VIAL 2 MG/ML 2 ml VIAL IV PRN (08:09)
[2019-12-23] MEDS ORDERED: Naloxone 0.4 mg VIAL 0.4 mg/ml 1 ml VIAL IV PRN (08:09)
[2019-12-23] MEDS ORDERED: fentaNYL 100 mcg/2 ml 50 MCG/ML VIAL IV PRN (08:09)
[2019-12-23] MEDS ORDERED: Metoclopramide 5 MG/ML VIAL (10 mg) ONE (08:18)
[2019-12-23] MEDS ORDERED: Ondansetron 4 mg VIAL 2 MG/ML 2 ml VIAL ONE ×3 (08:18→12:35)
[2019-12-23] MEDS ORDERED: Esmolol 10 MG/ML 10 ML (100 mg) ONE (08:47)
[2019-12-23] MEDS ORDERED: Acetaminophen IV 1 GM/100ML 0 ML ONE (08:58)
[2019-12-23] MEDS ORDERED: Phenylephrine IV 10 MG/ML 1 ml VIAL ONE ×2 (09:17→14:41)
[2019-12-23] MEDS ORDERED: Remifentanil 2 MG VIAL ONE (09:21)
[2019-12-23] MEDS ORDERED: HYDROcodone/ACET. 7.5/325 LIQ 15 ML UDC PO PRN (11:18)
[2019-12-23] MEDS ORDERED: HYDROmorphone 1 MG/1 ML SYRINGE ONE (11:30)
[2019-12-23] MEDS: HYDROmorphone 1 MG/1 ML SYRINGE IV PRN ×3 (11:30→12:08)
[2019-12-23] MEDS ORDERED: Dextrose 50% Syringe 50 ml 25 GM/50 ML SYRINGE IV PUSH PRN (11:32)
[2019-12-23] MEDS ORDERED: Labetalol IV 5 MG/ML 20 ml VIAL IV PUSH PRN (11:47)
[2019-12-23] MEDS ORDERED: Labetalol IV 5 MG/ML 20 ml VIAL ONE (12:01)
[2019-12-23] MEDS ORDERED: Propofol 0 MG/0 ML BTL ONE (12:15)
[2019-12-23] MEDS ORDERED: Acetaminophen IV 1 GM/100ML 100 ML ONE (12:35)
[2019-12-23] MEDS: Lactated Ringers 1000 ml BAG 1,000 ML IV SCH ×2 (13:10→20:01)
[2019-12-23] MEDS ORDERED: Phenylephrine 40 mcg/mL 10mL (400mcg) SYRINGE ONE (14:42)
[2019-12-23] MEDS: Heparin 5000 UNITS/ML 1 mL VIAL SUBCUT SCH ×2 (14:55→23:07)
[2019-12-23] MEDS: HYDROmorphone 0.5 MG/0.5 ML SYRINGE IV SLOW PU PRN ×2 (17:57→23:08)
[2019-12-23] MEDS: Famotidine IV 10 MG/ML 2 ml VIAL (20 mg) IV SLOW PU SCH (20:03)
[2019-12-24] MEDS: HYDROmorphone 0.5 MG/0.5 ML SYRINGE IV SLOW PU PRN ×3 (02:32→17:01)
[2019-12-24] MEDS: Lactated Ringers 1000 ml BAG 1,000 ML IV SCH (02:35)
[2019-12-24] MEDS: Ondansetron 4 mg VIAL 2 MG/ML 2 ml VIAL IV PRN ×3 (02:38→17:00)
[2019-12-24] MEDS: Heparin 5000 UNITS/ML 1 mL VIAL SUBCUT SCH ×3 (05:59→21:48)
[2019-12-24] MEDS: Famotidine IV 10 MG/ML 2 ml VIAL (20 mg) IV SLOW PU SCH ×2 (07:44→21:47)
[2019-12-24] MEDS: D5W 1/2 NS KCl 20 meq 1000 ml 1,000 ML IV SCH (09:59)
[2019-12-25] MEDS: D5W 1/2 NS KCl 20 meq 1000 ml 1,000 ML IV SCH (02:58)
[2019-12-25 07:01] LABS: Hematocrit 41 % (42-52); Hemoglobin 13.6 g/dL (14.0-18.0); Mean Corpuscular HGB Conc 33 g/dL (31-36); Mean Corpuscular Hemoglobin 27 pg (27-31); Mean Corpuscular Volume 81 fL (80-94); Platelet Count 156 10^3/uL (150-450); Red Cell Distribution Width 14 % (10-15); White Blood Count 7.2 10^3/uL (3.5-10.8)
[2019-12-25] MEDS: Heparin 5000 UNITS/ML 1 mL VIAL SUBCUT SCH (07:33)
[2019-12-25 07:42] VITALS: BP 128/73
[2019-12-25] MEDS: Ondansetron 4 mg VIAL 2 MG/ML 2 ml VIAL IV PRN (07:54)
[2019-12-25] MEDS: Famotidine IV 10 MG/ML 2 ml VIAL (20 mg) IV SLOW PU SCH (08:39)
== END 2019-12-25 10:10 | disposition home or self-care (01) | DRG 403 ==
LOC: AA 05:59 → SSU 12:59
PROVIDERS: ADMIT Surgery; ATTEND Surgery